=== PATIENT | female | born 1995 | race Caucasian/White ===

== ENCOUNTER → 2021-04-02 | Outpatient (CLI) | payer OTHER | LOC: M LABSMTC 09:53 | PROVIDERS: ATTEND Surgery | DX: Z01.812 Encounter for preprocedural laboratory examination (principal); Z20.822 Contact with and (suspected) exposure to COVID-19 ==

== ENCOUNTER → 2021-04-29 | Outpatient (CLI) | payer OTHER ==
--- NOTE | 2021-04-29 13:22 | REP ---
INDICATION: DISC DEGENERATION, R/O HNP. COMPARISON: None. TECHNIQUE: Sagittal and axial T1 and T2-weighted scans are acquired in the usual fashion with and without fat saturation. Sequences include spin echo, turbo spin-echo, and STIR imaging sequences. FINDINGS: There is straightening of the normal lumbar lordosis. Lumbar vertebral body heights are preserved. Cortical and medullary bone signal intensity are normal. No extra spinal abnormality is observed. The tip of the conus medullaris is normal in position and appearance at L1-L2. Axial and sagittal images taken at the L4-5 disc level demonstrate a moderate size right paracentral focal disc protrusion producing mild thecal sac compression. No neural foraminal narrowing is seen. There is mild ligamentum flavum hypertrophy bilaterally. At L5-S1, there is a central focal disc protrusion which effaces the ventral epidural fat and subtly contacts the ventral margin of the thecal sac. There is an annulus tear. There is ligamentum flavum and facet hypertrophy at L5-S1. No neural foraminal narrowing is seen. The posterior margin of the L3-4, L2-3, and L1-2 discs are normal. Study is otherwise unremarkable. IMPRESSION: Right paracentral focal disc protrusion at L4-5 and central focal disc protrusion at L5-S1. Ligamentum flavum hypertrophy at L4-5 and L5-S1. Mild facet hypertrophy at L5-S1. <Electronically signed by Kunal Michael > 04/29/21 1866
== END ==
LOC: M PLAIMG 11:12
PROVIDERS: ATTEND Physician Assistant
DX: M51.36 Other intervertebral disc degeneration, lumbar region (principal); M51.26 Other intervertebral disc displacement, lumbar region; M24.28 Disorder of ligament, vertebrae